=== PATIENT | male | born 1980 | race Caucasian/White ===

== ENCOUNTER 2020-05-19 08:29 | Outpatient (REF) | payer BC, SELFPAY ==
[2020-05-19 10:19] LABS: Hematocrit 46.1 % (42-52); Mean Corpuscular HGB Conc 32.5 g/dl (31.0-36.0); Mean Corpuscular Hemoglobin 30.4 pg (27.0-33.0); Mean Corpuscular Volume 93.5 fL (80-98); Mean Platelet Volume 10.4 fL (9.4-12.4); Platelet Count 316 X10*3/uL (160-400); Red Blood Count 4.93 X10*6/uL (4.60-5.80); Red Cell Distribution Width 11.9 % (11.0-16.0); White Blood Count 6.8 X10*3/uL (4.8-10.8)
[2020-05-19 11:08] LABS: Alanine Aminotransferase 37 U/L (0-40); Albumin Level 4.5 g/dL (3.5-5.0); Alkaline Phosphatase 89 U/L (39-117); Anion Gap 11 (12-20); Aspartate Amino Transferase 24 U/L (5-37); Bilirubin Direct 0.2 mg/dL (0.0-0.5); Bilirubin Total 0.5 mg/dL (0.0-1.0); Blood Urea Nitrogen 12 mg/dL (9-16); Calcium 9.4 mg/dL (8.4-10.2); Carbon Dioxide 30 mmol/L (22-29); Chloride 108 mmol/L (96-108); Cholesterol 136 mg/dL; Estimated Glomerular Filt Rate > 60; Glucose Random 87 mg/dL (60-115); HDL Cholesterol 38 mg/dL; LDL Cholesterol Calculated 82 mg/dl; Potassium 4.3 mmol/L (3.3-5.1); Sodium 145 mmol/L (135-145); Total Protein 7.2 g/dL (6.5-8.0); Triglycerides 81 mg/dL
[2020-05-19 11:31] LABS: Thyroid Stimulating Hormone 0.94 uIU/mL (0.32-4.0)
[2020-05-23 11:32] LABS: Vitamin D 25-OH, D2 <4 ng/mL; Vitamin D 25-OH, D3 8 ng/mL; Vitamin D 25-OH, Total 8 ng/mL (30-100)
== END 2020-05-19 08:30 | disposition home or self-care (01) ==
LOC: HO.10HDL 08:29
PROVIDERS: Visit Provider Internal Medicine
DX: E78.00 Pure hypercholesterolemia, unspecified (principal); F41.1 Generalized anxiety disorder
CPT/HCPCS: 36415; 80048; 80061; 80076; 82306; 84443; 85027

== ENCOUNTER 2021-07-16 08:58 | Outpatient (REF) | payer BC, SELFPAY ==
--- NOTE | ~2021-07-16 | XR_ITS ---
EXAMINATION: XR CHEST CLINICAL INFORMATION: Pleura dynamic COMPARISON: None TECHNIQUE: Frontal view of the chest was obtained. FINDINGS: No significant abnormality is noted involving the heart, lungs, mediastinum, bony thorax or soft tissues. XR/XR chest 1V IMPRESSION: Unremarkable chest examination.
[2021-07-16 10:03] LABS: Hematocrit 48.6 % (42.0-52.0); Hemoglobin 16.1 g/dl (14.0-18.0); Mean Corpuscular HGB Conc 33.1 g/dl (31.0-36.0); Mean Corpuscular Hemoglobin 30.5 pg (27.0-33.0); Mean Platelet Volume 10.5 fL (9.4-12.4); Platelet Count 281 X10*3/uL (160-400); Red Blood Count 5.28 X10*6/uL (4.60-5.80); Red Cell Distribution Width 11.9 % (11.0-16.0); White Blood Count 5.7 X10*3/uL (4.8-10.8)
[2021-07-16 10:59] LABS: Appearance Urine CLEAR; Color Urine YELLOW; Glucose Urine UA NEG (NEG); Leukocyte Esterase Urine NEG (NEG); Nitrite Urine NEG (NEG); PH 5.5 (5.0-8.0); Specific Gravity - Urine >= 1.030 (1.005-1.025); Urine Blood 1+ (NEG); Urine Ketones NEG (NEG); Urine Protein NEG (NEG-TRACE)
[2021-07-16 11:00] LABS: Alanine Aminotransferase 57 U/L (0-40); Albumin Level 4.6 g/dL (3.5-5.0); Alkaline Phosphatase 77 U/L (39-117); Anion Gap 11 (12-20); Aspartate Amino Transferase 34 U/L (5-37); Bilirubin Direct 0.3 mg/dL (0.0-0.5); Blood Urea Nitrogen 9 mg/dL (9-16); Carbon Dioxide 28 mmol/L (22-29); Chloride 104 mmol/L (96-108); Cholesterol 163 mg/dL; Estimated Glomerular Filt Rate > 60; Glucose Random 86 mg/dL (60-115); HDL Cholesterol 44 mg/dL; LDL Cholesterol Calculated 91 mg/dl; Sodium 139 mmol/L (135-145); Total Protein 7.5 g/dL (6.5-8.0); Triglycerides 144 mg/dL
[2021-07-16 11:23] LABS: Thyroid Stimulating Hormone 2.06 uIU/mL (0.32-4.0)
[2021-07-16 11:48] LABS: Bacteria Urine TRACE /LPF; RBC Urine 0-2 /HPF (0); Squamous Epithelial Cell Urine 1+ /LPF; WBC Urine 0-2 /HPF (0-4)
== END 2021-07-16 08:59 | disposition home or self-care (01) ==
LOC: HO.XRAY 08:58
PROVIDERS: Absent Provider Internal Medicine; PCP Internal Medicine; Visit Provider Nurse Practitioner Acute Care
DX: F41.1 Generalized anxiety disorder (principal); E78.00 Pure hypercholesterolemia, unspecified; R07.81 Pleurodynia
CPT/HCPCS: 36415; 71045; 80048; 80061; 80076; 81001; 81003; 84443; 85027

== ENCOUNTER 2022-10-07 08:01 | Outpatient (AMB) | payer BC, SELFPAY ==
--- NOTE | 2022-10-07 08:02 | A.OFFPC_ITS ---
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 Accompanied by: Self / Same As Patient Allergies No Known Allergies Allergy (Verified 10/07/22 08:14) Medication List - Last Reconciled 10/07/22 by Jose Silvestre MD atorvastatin 40 mg PO DAILY paroxetine HCl 40 mg PO DAILY Tobacco use date assessed: 04/08/22 Dental Screening Dental Screen Date: 10/07/22 Did you have a dental visit in the last 12 months?: Yes Did you have a dental problem in the last 6 months where you did not have access to dental care?: No Was dental information given to patient?: Patient has dentist HPI 6mth f/u HPI Details 42-year-old male presents to the office to discuss his chronic medical conditions. Patient is compliant with medications and reporting no side effects. Able to function and do all activities of daily living. Patient reports he goes to bed at midnight and wakes up at 08:00. Occasionally he feels tired. 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 Very active at work. Able to function and communicate well with his peers. No stress at home either. [facility] Medical History (Updated 10/07/22 @ 08:18 by Jose Silvestre MD) Hypercholesterolemia Surgical History History of placement of ear tubes Family History Father No problems noted. Mother No problems noted. Social History Housing: House Alcohol intake: never Patient Tobacco Use Status: Former Tobacco user Tobacco use type: Cigarette e-Cigarette/Vaping Use: Never Used Second Hand Smoke Exposure: No service: No Current occupational status: employed Current occupational exposures/hazards: No Cognitive needs: No Hearing needs: No Vision needs: Yes Questionnaire PHQ-9 Over the last 2 weeks, how often have you been bothered by any of the following problems? Depression Screening Interpretation: Positive Depression Screening Follow-up: Existing condition and In treatment Source: Developed by Drs. Cachorro Lewis, Shonna Mcnamara, Samuel Chambers and colleagues, with an educational booker from [employer]. Thrive Questionnaire Date Thrive assessed: 04/08/22 ETHAN-7 AMB Questionnaire ETHAN-7 Date ETHAN - 7 assessed: 10/07/22 Feeling nervous, anxious, or on edge: 1 = Several days Not being able to stop or control worryin = Not at all Worrying too much about different things: 1 = Several days Trouble relaxin = Not at all Being so restless that it is hard to sit still: 0 = Not at all Becoming easily annoyed or irritable: 0 = Not at all Feeling afraid as if something awful might happen: 0 = Not at all Total ETHAN-7 score (0-4 normal; 5-9 mild; 10-14 moderate; 15-21 severe): 2 Source: Developed by Drs. Cachorro Lewis, Shonna Mcnamara, Samuel Chambers and colleagues, with an educational booker from [employer]. Physical exam (Primary Care) Vital Signs: Last Vital Signs Pulse 76 10/07/22 08:03 BP 108/82 10/07/22 08:03 Pulse Ox 98 10/07/22 08:03 Oxygen Delivery Method Room Air 10/07/22 08:03 Care Plan Goal for BP management: Blood pressure is in range with no medications. BMI result Body Mass Index 24.8 Tobacco/Smoking Status: Tobacco use Status Tobacco use date assessed 04/08/22 10/07/22 08:06 Patient Tobacco Use Status Former Tobacco user 10/07/22 08:06 Tobacco use type Cigarette 10/07/22 08:06 e-Cigarette/Vaping Use Never Used 10/07/22 08:06 Depression Screening Interpretation: Positive Depression Screening Follow-up: Existing condition and In treatment Thrive Assessment: Date of Thrive Assessment Date Thrive assessed 04/08/22 10/07/22 08:06 Const General: cooperative, healthy appearing and comfortable HENMT Head: Yes normal to inspection and Yes atraumatic Eyes General: appearance normal, both eyes and all related structures Neck Neck: Yes normal visual inspection and Yes full ROM Chest Chest palpation & inspection: normal inspection of the chest Resp Effort & Inspection: normal respiratory effort Auscultation: clear to auscultation bilaterally Cardio Jugular venous distension: no JVD Palpation: normal PMI Rate: regular rate Heart sounds: S1 normal heart sound present and S2 normal heart sound present GI Palpation (GI): Soft to palpation and No hepatosplenomegaly present Extrem General: Yes normal to inspection and Yes full ROM Assessment and Plan Assessment & Plan (1) Major depression, recurrent, chronic: Code(s): F33.9 - Major depressive disorder, recurrent, unspecified Plan: Continue current medications. Patient does not require any therapy. (2) Hypercholesterolemia: Code(s): E78.00 - Pure hypercholesterolemia, unspecified Plan: Blood work has been ordered. Will call with results. Coding Level of Care Code Est Pt Level 4 (36447) Diagnoses Major depression, recurrent, chronic F33.9 Hypercholesterolemia E78.00
[2022-10-07 08:03] VITALS: BP 108/82; PULSE 76; O2SAT 98; BMI 24.8
== END 2022-10-07 08:14 | disposition home or self-care (01) ==
PROVIDERS: PCP Internal Medicine; Visit Provider Internal Medicine
DX: F33.9 Major depressive disorder, recurrent, unspecified (principal); E78.00 Pure hypercholesterolemia, unspecified
CPT/HCPCS: 99214

== ENCOUNTER 2022-10-07 08:27 | Outpatient (REF) | payer BC, SELFPAY ==
[2022-10-07 10:55] LABS: Hematocrit 49.7 % (42.0-52.0); Hemoglobin 16.6 g/dl (14.0-18.0); Mean Corpuscular HGB Conc 33.4 g/dl (31.0-36.0); Mean Corpuscular Hemoglobin 30.2 pg (27.0-33.0); Mean Corpuscular Volume 90.4 fL (80.0-98.0); Mean Platelet Volume 10.3 fL (9.4-12.4); Platelet Count 314 X10*3/uL (160-400); Red Cell Distribution Width 11.7 % (11.0-16.0); White Blood Count 5.5 X10*3/uL (4.8-10.8)
[2022-10-07 11:17] LABS: Alanine Aminotransferase 57 U/L (0-40); Albumin Level 4.8 g/dL (3.5-5.0); Alkaline Phosphatase 75 U/L (39-117); Anion Gap 15 (12-20); Aspartate Amino Transferase 31 U/L (5-37); Bilirubin Direct 0.4 mg/dL (0.0-0.5); Bilirubin Total 1.3 mg/dL (0.0-1.0); Blood Urea Nitrogen 11 mg/dL (9-16); Calcium 10.2 mg/dL (8.4-10.2); Carbon Dioxide 24 mmol/L (22-29); Chloride 106 mmol/L (96-108); Cholesterol 138 mg/dL; Estimated Glomerular Filt Rate > 60; Glucose Random 87 mg/dL (60-115); HDL Cholesterol 43 mg/dL; LDL Cholesterol Calculated 83 mg/dl; Potassium 4.3 mmol/L (3.3-5.1); Sodium 141 mmol/L (135-145); Triglycerides 62 mg/dL
[2022-10-07 11:33] LABS: Thyroid Stimulating Hormone 1.45 uIU/mL (0.32-4.0)
== END 2022-10-07 08:28 | disposition home or self-care (01) ==
LOC: HO.10HDL 08:27
PROVIDERS: Visit Provider Internal Medicine
DX: E78.00 Pure hypercholesterolemia, unspecified (principal); F33.9 Major depressive disorder, recurrent, unspecified
CPT/HCPCS: 36415; 80048; 80061; 80076; 84443; 85027

== ENCOUNTER 2023-04-14 07:54 | Outpatient (AMB) | payer BC, SELFPAY ==
[2023-04-14 07:58] VITALS: BP 132/80; PULSE 78; O2SAT 98; BMI 26.5
--- NOTE | 2023-04-14 07:58 | MHC.PC.OV ---
Vital Signs 04/14/23 07:58 Height 5 ft 11 in Weight 190 lb BMI 26.5 BP 132/80 Blood Pressure Location Lt brachial Position Sitting Pulse 78 Pulse Source Pulse Oximeter Pulse Oximetry (%) 98 Oxygen Delivery Method Room Air Intake Visit Reasons: 6M follow up Allergies No Known Allergies Allergy (Verified 04/14/23 07:59) Medication List - Last Reconciled 04/17/23 by Jose Silvestre MD atorvastatin 40 mg PO DAILY paroxetine HCl 40 mg PO DAILY Tobacco use date assessed: 04/14/23 Dental Screening Dental Screen Date: 04/14/23 Did you have a dental visit in the last 12 months?: Yes Did you have a dental problem in the last 6 months where you did not have access to dental care?: No Was dental information given to patient?: Patient has dentist HPI 6M follow up HPI Details 42-year-old male presents to the office to discuss his chronic medical conditions. Patient is compliant with medications and reporting no side effects. Able to function and do all activities of daily living. Continues to work at [employer]. Depression symptoms are under control. Sleeping well at night. Appetite is normal. Able to interact appropriately with family members and friends. [facility] Medical History (Updated 04/17/23 @ 17:41 by Jose Silvestre MD) Major depression, recurrent, chronic Hypercholesterolemia Surgical History History of placement of ear tubes Family History Father No problems noted. Mother No problems noted. Social History Housing: House Alcohol intake: never Patient Tobacco Use Status: Former Tobacco user Tobacco use type: Cigarette e-Cigarette/Vaping Use: Never Used Second Hand Smoke Exposure: No service: No Current occupational status: employed Current occupational exposures/hazards: No Cognitive needs: No Hearing needs: No Vision needs: Yes Questionnaire PHQ-9 Over the last 2 weeks, how often have you been bothered by any of the following problems? 1. Little interest or pleasure in doing things: nearly every day 2. Feeling down, depressed, or hopeless: nearly every day 3. Trouble falling or staying asleep, or sleeping too much: not at all 4. Feeling tired or having little energy: nearly every day 5. Poor appetite or overeating: not at all 6. Feeling bad about yourself - or that you are a failure or have let yourself or your family down: not at all 7. Trouble concentrating on things, such as reading the newspaper or watching television: not at all 8. Moving or speaking so slowly that other people could have noticed. Or the opposite - being so fidgety or restless that you have been moving around a lot more than usual: not at all 9. Thoughts that you would be better off or of hurting yourself in some way: not at all Total score: 9 Depression Screening Interpretation: Positive Depression Screening Follow-up: Existing condition and In treatment Depression Screening Done: Yes Source: Developed by Drs. Cachorro Lewis, Shonna Mcnamara, Samuel Chambers and colleagues, with an educational booker from [employer]. Thrive Questionnaire Date Thrive assessed: 04/14/23 I am a: Patient What is your living situation today?: I have a steady place to live Within the past 12 months, did the food you bought not last and you didn't have the money to get more?: Never true Within the past 12 months, did you worry whether your food would run out before you got money to buy more?: Never true Do you have trouble paying for medicines?: No Do you have trouble getting transportation to medical appointments?: No Do you have trouble paying your heating and electricity bill?: No Do you have trouble taking care of your child, family member or friend?: No Do you have trouble with day-to-day activities such as bathing, preparing meals, shopping, managing finances, etc.?: No Are you currently unemployed and looking for a job?: No Are you interested in more education?: No Currently or been in a relationship where the following occur: no concerns reported THRIVE Score: 0 AUDIT C Alcohol Use Questionnaire (AUDIT-C) 1. How often do you have a drink containing alcohol?: Never Total Score: 0 ETHAN-7 AMB Questionnaire ETHAN-7 Date ETHAN - 7 assessed: 04/14/23 Feeling nervous, anxious, or on edge: 0 = Not at all Not being able to stop or control worryin = Not at all Worrying too much about different things: 0 = Not at all Trouble relaxin = Not at all Being so restless that it is hard to sit still: 0 = Not at all Becoming easily annoyed or irritable: 0 = Not at all Feeling afraid as if something awful might happen: 0 = Not at all Total ETHAN-7 score (0-4 normal; 5-9 mild; 10-14 moderate; 15-21 severe): 0 Source: Developed by Drs. Cachorro Lewis, Shonna Mcnamara, Samuel Chambers and colleagues, with an educational booker from [employer]. Physical exam (Primary Care) Vital Signs: Last Vital Signs Pulse 78 04/14/23 07:58 BP 132/80 04/14/23 07:58 Pulse Ox 98 04/14/23 07:58 Oxygen Delivery Method Room Air 04/14/23 07:58 Care Plan Goal for BP management: Blood pressure is stable. BMI result Body Mass Index 26.5 Tobacco/Smoking Status: Tobacco use Status Tobacco use date assessed 04/14/23 04/14/23 08:04 Patient Tobacco Use Status Former Tobacco user 04/14/23 08:04 Tobacco use type Cigarette 04/14/23 08:04 e-Cigarette/Vaping Use Never Used 04/14/23 08:04 PHQ-9: PHQ-9 Score PHQ-9: Total score 9 04/14/23 08:04 Depression Screening Interpretation: Positive Depression Screening Follow-up: Existing condition and In treatment Thrive Assessment: Date of Thrive Assessment Date Thrive assessed 04/14/23 04/14/23 08:04 Currently or been in a relationship where the following occur: no concerns reported Const General: cooperative and healthy appearing Nutritional Appearance: well nourished Orientation/consciousness: patient oriented x3 Limitations: no limitations HENMT Head: Yes normal to inspection Eyes General: appearance normal, both eyes and all related structures Neck Neck: Yes normal visual inspection Chest Chest palpation & inspection: normal palpation of entire chest wall Resp Effort & Inspection: normal respiratory effort Neuro General: patient oriented x3 Assessment and Plan Assessment & Plan (1) Major depression, recurrent, chronic: Code(s): F33.9 - Major depressive disorder, recurrent, unspecified Plan: Continue SSRI at the same dosage. (2) Hypercholesterolemia: Code(s): E78.00 - Pure hypercholesterolemia, unspecified Plan: Blood work ordered. Will call with the results. Orders: Orders Basic Metabolic Panel 04/14/23 E78.00 - Pure hypercholesterolemia, unspecified, F33.9 - Major depressive disorder, recurrent, unspecified Complete Blood Count no Diff 04/14/23 E78. - Pure hypercholesterolemia, unspecified, F33.9 - Major depressive disorder, recurrent, unspecified Liver Panel 04/14/23 E78.00 - Pure hypercholesterolemia, unspecified, F33.9 - Major depressive disorder, recurrent, unspecified Thyroid Stimulating Hormone 04/14/23 E78.00 - Pure hypercholesterolemia, unspecified, F33.9 - Major depressive disorder, recurrent, unspecified UA and rflx microscopic 04/14/23 E78.00 - Pure hypercholesterolemia, unspecified, F33.9 - Major depressive disorder, recurrent, unspecified Lipid Panel 04/14/23 E78.00 - Pure hypercholesterolemia, unspecified, F33.9 - Major depressive disorder, recurrent, unspecified Coding Level of Care Code Est Pt Level 4 (11822) Diagnoses Major depression, recurrent, chronic F33.9 Hypercholesterolemia E78.00
== END 2023-04-14 08:29 | disposition home or self-care (01) ==
PROVIDERS: PCP Internal Medicine; Visit Provider Internal Medicine
DX: F33.9 Major depressive disorder, recurrent, unspecified (principal); E78.00 Pure hypercholesterolemia, unspecified
CPT/HCPCS: 99214

== ENCOUNTER 2023-10-13 07:54 | Outpatient (AMB) | payer BC, SELFPAY ==
[2023-10-13 07:56] VITALS: BP 112/76; PULSE 79; O2SAT 99; BMI 25.0
--- NOTE | 2023-10-13 07:56 | MHC.PC.OV ---
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 Patient is compliant with medication and is at baseline state of health. He works for [employer]. Lives with his girlfriend and dog. Able to function and do all activities of daily living. Able to maintain good interpersonal relationships. Sleeping well at night. Appetite is normal. [facility] Medical History (Updated 10/13/23 @ 08:00 by Jose Silvestre MD) Major depression, recurrent, chronic Hypercholesterolemia Surgical History History of placement of ear tubes Family History Father No problems noted. Mother No problems noted. Social History Housing: House Alcohol intake: never Patient Tobacco Use Status: Former Tobacco user Tobacco use type: Cigarette e-Cigarette/Vaping Use: Never Used Second Hand Smoke Exposure: No service: No Current occupational status: employed Current occupational exposures/hazards: No Cognitive needs: No Hearing needs: No Vision needs: Yes Questionnaire Thrive Questionnaire Date Thrive assessed: 04/14/23 ETHAN-7 AMB Questionnaire ETHAN-7 Date ETHAN - 7 assessed: 04/14/23 Source: Developed by Drs. Cachorro Lweis, Shonna Mcnamara, Samuel Chambers and colleagues, with an educational booker from [employer]. Physical exam (Primary Care) Vital Signs: Last Vital Signs Pulse 79 10/13/23 07:56 BP 112/76 10/13/23 07:56 Pulse Ox 99 10/13/23 07:56 Oxygen Delivery Method Room Air 10/13/23 07:56 BMI result Body Mass Index 25.0 Tobacco/Smoking Status: Tobacco use Status Tobacco use date assessed 04/14/23 10/13/23 08:01 Patient Tobacco Use Status Former Tobacco user 10/13/23 08:01 Tobacco use type Cigarette 10/13/23 08:01 e-Cigarette/Vaping Use Never Used 10/13/23 08:01 Thrive Assessment: Date of Thrive Assessment Date Thrive assessed 04/14/23 10/13/23 08:01 Const General: cooperative and healthy appearing Nutritional Appearance: well nourished Orientation/consciousness: patient oriented x3 Limitations: no limitations HENMT Head: Yes normal to inspection Eyes General: appearance normal, both eyes and all related structures Neck Neck: Yes normal visual inspection Chest Chest palpation & inspection: normal palpation of entire chest wall Resp Effort & Inspection: normal respiratory effort Neuro General: patient oriented x3 Assessment and Plan Assessment & Plan (1) Hypercholesterolemia: Code(s): E78.00 - Pure hypercholesterolemia, unspecified Plan: Patient has not had blood work done in a year. Fasting blood work has been ordered. Will adjust the dosage of the statins based on the results of the blood work. (2) Major depression, recurrent, chronic: Code(s): F33.9 - Major depressive disorder, recurrent, unspecified Plan: Patient reports that his condition is stable. Prefers to be on the medication at the same dosage. Orders: Orders Complete Blood Count no Diff Today E78.00 - Pure hypercholesterolemia, unspecified, F33.9 - Major depressive disorder, recurrent, unspecified Liver Panel Today E78.00 - Pure hypercholesterolemia, unspecified, F33.9 - Major depressive disorder, recurrent, unspecified Thyroid Stimulating Hormone Today E78.00 - Pure hypercholesterolemia, unspecified, F33.9 - Major depressive disorder, recurrent, unspecified Basic Metabolic Panel Today E78.00 - Pure hypercholesterolemia, unspecified, F33.9 - Major depressive disorder, recurrent, unspecified Lipid Panel Today E78.00 - Pure hypercholesterolemia, unspecified, F33.9 - Major depressive disorder, recurrent, unspecified UA and rflx microscopic Today E78.00 - Pure hypercholesterolemia, unspecified, F33.9 - Major depressive disorder, recurrent, unspecified Coding Level of Care Code Est Pt Level 4 (63361) Complex EM visit Add On G2211 Diagnoses Hypercholesterolemia E78.00 Major depression, recurrent, chronic F33.9
== END 2023-10-13 08:15 | disposition home or self-care (01) ==
PROVIDERS: PCP Internal Medicine; Visit Provider Internal Medicine
DX: E78.00 Pure hypercholesterolemia, unspecified (principal); F33.9 Major depressive disorder, recurrent, unspecified
CPT/HCPCS: 99214

== ENCOUNTER 2023-10-13 08:22 | Outpatient (REF) | payer BC, SELFPAY ==
[2023-10-13 08:55] LABS: Hematocrit 47.4 % (42.0-52.0); Hemoglobin 15.8 g/dl (14.0-18.0); Mean Corpuscular HGB Conc 33.3 g/dl (31.0-36.0); Mean Corpuscular Hemoglobin 30.7 pg (27.0-33.0); Mean Platelet Volume 9.7 fL (9.4-12.4); Platelet Count 305 X10*3/uL (160-400); Red Blood Count 5.15 X10*6/uL (4.60-5.80); Red Cell Distribution Width 11.9 % (11.0-16.0); White Blood Count 5.1 X10*3/uL (4.8-10.8)
[2023-10-13 09:34] LABS: Alanine Aminotransferase 47 U/L (0-40); Albumin Level 4.6 g/dL (3.5-5.0); Alkaline Phosphatase 69 U/L (39-117); Anion Gap 9 (12-20); Aspartate Amino Transferase 31 U/L (5-37); Bilirubin Direct 0.2 mg/dL (0.0-0.5); Bilirubin Total 0.7 mg/dL (0.0-1.0); Blood Urea Nitrogen 10 mg/dL (9-16); Calcium 9.8 mg/dL (8.4-10.2); Carbon Dioxide 30 mmol/L (22-29); Chloride 106 mmol/L (96-108); Cholesterol 143 mg/dL (<200); Estimated Glomerular Filt Rate > 60; Glucose Random 102 mg/dL (60-115); HDL Cholesterol 44 mg/dL (>40); LDL Cholesterol Calculated 88 mg/dL (<100); Potassium 4.2 mmol/L (3.3-5.1); Sodium 141 mmol/L (135-145); Total Protein 7.4 g/dL (6.5-8.0); Triglycerides 56 mg/dL (<150)
[2023-10-13 09:50] LABS: Thyroid Stimulating Hormone 1.29 uIU/mL (0.32-4.0)
== END 2023-10-13 08:23 | disposition home or self-care (01) ==
LOC: HO.LAB 08:22
PROVIDERS: PCP Internal Medicine; Visit Provider Internal Medicine
DX: E78.00 Pure hypercholesterolemia, unspecified (principal); F33.9 Major depressive disorder, recurrent, unspecified
CPT/HCPCS: 36415; 80048; 80061; 80076; 84443; 85027

== ENCOUNTER 2024-05-10 07:52 | Outpatient (AMB) | payer BC, SELFPAY ==
--- OUTSIDE RECORDS SUMMARY | 2024-05-10 07:56 | XMS_ITS | Data Portability ---
Author Organization [facility], Main Office Address [address] [facility] [address] [place] [id number] Care Team Providers Care Scaler Name Role Phone JAN BROWNE Primary Care Provider Assessment No assessment recorded. Plan of Treatment Reminders Order Date Submit Date Provider Last Modified By Organization Details Last Modified Time Details Appointments None recorde d. Lab tissue transgl utamina se igg Ab, serum 2016 017 IV[facility], [address], [address], [place], [address], 7 09:51:02 tissue transgl utamina se iga Ab, serum 2016 017 [facility], [address], [address], [place], [address], 7 17:10:43 lipid panel, serum 2016 017 [facility], [address], [address], [place], [address], 7 15:17:26 CMP, serum or plasma 2016 017 [facility], [address], [address], [place], [address], 7 15:17:25 CBC w/ auto diff 2016 017 [facility], [address], [address], [place], [address], 7 13:58:42 Referral None recorde d. Procedures None recorde d. Surgeries None recorde d. Imaging XR, calcane us 2016 017 marcelle [facility], [address] [place], [address], 7 08:24:07 XR, ankle, 3 or more view 2016 017 IAVN [facility], [address] [place], [address], 7 13:13:31 Medication Orders clonaze mitch 0.5 mg tablet 2016 017 [email or web address] Not available 09:35:12 Patient TargetsNo targets recorded. Patient Instructions Encounter Date Encounter Id Patient Instructions Last Modified By Organization Details Last Modified Time 04/07/2016 [id number] Quitting Tobacco : Care Instructions Not available 04/07/2016 14:11:26 Learning About Benefits of Quitting Smoking Not available 04/07/2016 14:11:26 diarrhea: care instructions Not available 04/07/2016 14:11:26 insomnia: care instructions Not available 04/07/2016 14:11:27 substance use disorder: care instructions Not available 04/07/2016 14:11:26 alcohol detoxification and withdrawal: care instructions Not available 04/07/2016 14:11:26 alcohol counseling* marcelle Not available 04/16/2016 09:37:47 alcoholism education [email or web address] Not available 04/08/2016 14:20:59 rec. get debrox kit - apply 5 drops in affected ear before bedtime, then place cotton ball - do so nightly x 1-3 nights, then use bulb syringe with warm water in the shower on the 4th day to irrigate the blockage out [email or web address] Not available 04/07/2016 14:01:51 I have reviewed the note and agree with the assessment and plan of care. driss Not available 04/08/2016 16:41:23 09/23/2016 [id number] plantar fasciiti s: care instructions [email or web address] Not available 09/23/2016 09:35:12 heel pain: care instructions [email or web address] Not available 09/23/2016 09:35:12 ankle sprain: ca re instructions ckrym Not available 09/23/2016 09:35:12 I have reviewed the note and agree with the assessment and plan of care. [email or web address] Not available 09/23/2016 12:43:56 Reason for Referral None Reported. Results Created Date Observation Date Name Description Value Unit Range Abnormal Flag Note LastModifiedBy Organization Detail LastModifiedTime 04/09/1904/09/2016 CBC w/ auto diff WBC 5.6 K/mm3 (4.0-1 1.0) Not Available [facility] (Centralized Electronic Ordering - All Locations) Patient Can Go To The Location Of Their Choice, 04/09/2016 13:58:42 04/09/1904/09/2016 CBC w/ auto diff RBC 5.38 M/mm3 (4.70- 6.10) Not Available [facility] (Centralized Electronic Ordering - All Locations) Patient Can Go To The Location Of Their Choice, 04/09/2016 13:58:42 04/09/1904/09/2016 CBC w/ auto diff HGB 16.9 gm/dL (14.0- 18.0) Not Available [facility] (Centralized Electronic Ordering - All Locations) Patient Can Go To The Location Of Their Choice, 04/09/2016 13:58:42 04/09/1904/09/2016 CBC w/ auto diff HCT 50.8 % (42.0- 52.0) Not Available [facility] (Centralized Electronic Ordering - All Locations) Patient Can Go To The Location Of Their Choice, 04/09/2016 13:58:42 04/09/1904/09/2016 CBC w/ auto diff MCV 94.4 fL (80.0- 94.0) high Not Available [facility] (Centralized Electronic Ordering - All Locations) Patient Can Go To The Location Of Their Choice, 04/09/2016 13:58:42 04/09/1904/09/2016 CBC w/ auto diff MCH 31.4 pg (27.0- 34.0) Not Available [facility] (Centralized Electronic Ordering - All Locations) Patient Can Go To The Location Of Their Choice, 04/09/2016 13:58:42 04/09/1904/09/2016 CBC w/ auto diff MCHC 33.3 g/dL (33.0- 37.0) Not Available [facility] (Centralized Electronic Ordering - All Locations) Patient Can Go To The Location Of Their Choice, 04/09/2016 13:58:42 04/09/1904/09/2016 CBC w/ auto diff plt 270 K/mm3 (150-4 60) Not Available [facility] (Centralized Electronic Ordering - All Locations) Patient Can Go To The Location Of Their Choice, 04/09/2016 13:58:42 04/09/1904/09/2016 CBC w/ auto diff RDW-SD 42.8 fL (<47.0 ) Not Available [facility] (Centralized Electronic Ordering - All Locations) Patient Can Go To The Location Of Their Choice, 04/09/2016 13:58:42 04/09/1904/09/2016 CBC w/ auto diff MPV 10.3 fL (9.4-1 2.4) Not Available [facility] (Centralized Electronic Ordering - All Locations) Patient Can Go To The Location Of Their Choice, 04/09/2016 13:58:42 04/09/1904/09/2016 CBC w/ auto diff automated NRBC 0.0 #/100 _WBC' s Not Available [facility] (Centralized Electronic Ordering - All Locations) Patient Can Go To The Location Of Their Choice, 04/09/2016 13:58:42 04/09/1904/09/2016 CBC w/ auto diff abs. NRBC 0.0 K/mm3 Not Available [facility] (Centralized Electronic Ordering - All Locations) Patient Can Go To The Location Of Their Choice, 04/09/2016 13:58:42 04/09/1904/09/2016 CMP, serum or plasm a glucose 94 mg/dL (70-99 ) Not Available [facility] (Centralized Electronic Ordering - All Locations) Patient Can Go To The Location Of Their Choice, 04/09/2016 15:17:25 04/09/1904/09/2016 CMP, serum or plasm a BUN 16 mg/dL (6-20) Not Available [facility] (Centralized Electronic Ordering - All Locations) Patient Can Go To The Location Of Their Choice, 04/09/2016 15:17:04/09/1904/09/2016 CMP, serum or plasm a creatinine 1.1 mg/dL (0.7-1 .2) Not Available [facility] (Centralized Electronic Ordering - All Locations) Patient Can Go To The Location Of Their Choice, 04/09/2016 15:17:04/09/1904/09/2016 CMP, serum or plasm a sodium 141 mmol/ L (133-1 45) Not Available [facility] (Centralized Electronic Ordering - All Locations) Patient Can Go To The Location Of Their Choice, 04/09/2016 15:17:04/09/1904/09/2016 CMP, serum or plasm a potassium 4.7 mmol/ L (3.6-5 .2) Not Available [facility] (Centralized Electronic Ordering - All Locations) Patient Can Go To The Location Of Their Choice, 04/09/2016 15:17:04/09/1904/09/2016 CMP, serum or plasm a chloride 102 mmol/ L (98-10 7) Not Available [facility] (Centralized Electronic Ordering - All Locations) Patient Can Go To The Location Of Their Choice, 04/09/2016 15:17:04/09/1904/09/2016 CMP, serum or plasm a bicarbonate 27 mmol/ L (22-29 ) Not Available [facility] (Centralized Electronic Ordering - All Locations) Patient Can Go To The Location Of Their Choice, 04/09/2016 15:17:04/09/1904/09/2016 CMP, serum or plasm a anion gap 12 (4-17) Not Available [facility] (Centralized Electronic Ordering - All Locations) Patient Can Go To The Location Of Their Choice, 04/09/2016 15:17:04/09/1904/09/2016 CMP, serum or plasm a albumin 4.8 gm/dL (3.4-4 .8) Not Available [facility] (Centralized Electronic Ordering - All Locations) Patient Can Go To The Location Of Their Choice, 04/09/2016 15:17:04/09/1904/09/2016 CMP, serum or plasm a calcium 9.7 mg/dL (8.6-1 0.5) Not Available [facility] (Centralized Electronic Ordering - All Locations) Patient Can Go To The Location Of Their Choice, 04/09/2016 15:17:04/09/1904/09/2016 CMP, serum or plasm a bilirubin,to bishop 0.6 mg/dL (0-1.2 ) Not Available [facility] (Centralized Electronic Ordering - All Locations) Patient Can Go To The Location Of Their Choice, 04/09/2016 15:17:04/09/1904/09/2016 CMP, serum or plasm a total protein 7.2 gm/dL (6.2-8 .2) Not Available [facility] (Centralized Electronic Ordering - All Locations) Patient Can Go To The Location Of Their Choice, 04/09/2016 15:17:04/09/1904/09/2016 CMP, serum or plasm a Ag ratio 2.0 Not Available [facility] (Centralized Electronic Ordering - All Locations) Patient Can Go To The Location Of Their Choice, 04/09/2016 15:17:04/09/1904/09/2016 CMP, serum or plasm a AST 27 U/L (0-38) Not Available [facility] (Centralized Electronic Ordering - All Locations) Patient Can Go To The Location Of Their Choice, 04/09/2016 15:17:04/09/1904/09/2016 CMP, serum or plasm a alk phos 61 U/L (40-12 9) Not Available [facility] (Centralized Electronic Ordering - All Locations) Patient Can Go To The Location Of Their Choice, 04/09/2016 15:17:04/09/1904/09/2016 CMP, serum or plasm a ALT 41 U/L (0-41) Not Available [facility] (Centralized Electronic Ordering - All Locations) Patient Can Go To The Location Of Their Choice, 04/09/2016 15:17:04/09/1904/09/2016 CMP, serum or plasm a est GFR non 86 mL/mi n/1.7 3_M2 The CKD-E PI creat inine equat ion has not been valid ated in child annika (<18 years ), pregn ant women , in some racia l or ethni c subgr oups other than Cauca sians and Afric an Ameri cans. Not Available [facility] (Centralized Electronic Ordering - All Locations) Patient Can Go To The Location Of Their Choice, 04/09/2016 15:17:25 04/09/19 17 04/09/2016 CMP, serum or plasm a est GFR 100 mL/mi n/1.7 3_M2 The CKD-E PI creat inine equat ion has not been valid ated in child annika (<18 years ), pregn ant women , in some racia l or ethni c subgr oups other than Cauca sians and Afric an Ameri cans. Not Available [facility] (Centralized Electronic Ordering - All Locations) Patient Can Go To The Location Of Their Choice, 04/09/2016 15:17:25 04/09/1904/09/2016 lipid panel , serum cholesterol, total 238 mg/dL (<200) high Not Available [facility] (Centralized Electronic Ordering - All Locations) Patient Can Go To The Location Of Their Choice, 04/09/2016 15:17:26 04/09/1904/09/2016 lipid panel , serum triglyceride 169 mg/dL (<150) high Not Available [facility] (Central[facility] Ordering - All Locations) Patient Can Go To The Location Of Their Choice, 04/09/2016 15:17:04/09/1904/09/2016 lipid panel , serum HDL chol 58 mg/dL (>39) Not Available [facility] (Centralized Electronic Ordering - All Locations) Patient Can Go To The Location Of Their Choice, 04/09/2016 15:17:26 04/09/1904/09/2016 lipid panel , serum LDL cholesterol, calculated 146 mg/dL (0-130 ) high Not Available [facility] (Centralized Electronic Ordering - All Locations) Patient Can Go To The Location Of Their Choice, 04/09/2016 15:17:26 04/09/1904/09/2016 lipid panel , serum non HDL cholesterol (calc) 180 mg/dL (<160) high Not Available [facility] (Centralized Electronic Ordering - All Locations) Patient Can Go To The Location Of Their Choice, [id number] 04/09/2016 15:17:26 04/09/19 17 04/12/2016 tissu e trans gluta shreya e iga Ab, serum ttg result 0.55 U/mL Refer ence Range : less than or equal to 15 U/mL (nega tive) Effec tiamarilys Canela 2016 the refer ence range for this assay has la ed from less than 4 U/mL to less than or equal to 15 U/mL. Not Available [facility] (Centralized Electronic Ordering - All Locations) Patient Can Go To The Location Of Their Choice, [id number] 04/12/2016 17:10:43 04/09/19 17 04/13/2016 tissu e trans gluta shreya e igg Ab, serum tissue tranglutamin ase IgG <1.2 Refer ence range : <6.0 (Nega tive) Unit: U/mL Test Perfo rmed by: [facility], [address] , [place] [address] Labor atory Direc tor: Evert astudillo III, M.D. Not Available [facility] (Centralized Electronic Ordering - All Locations) Patient Can Go To The Location Of Their Choice, [id number] 04/13/2016 09:51:02 09/28/19 17 09/27/2016 XR, calca neus Right calcan eus, latera l and tangen tial. Histor y: Pain. These images were previo usly interp reted togeth er with a right ankle study. See separa te report . WSN: [id number] Dictat ed By: John Kaye MD Dictat ed Date/T pia: 12:40 p Review ed By: John Kaye MD Signed By: John Kaye MD Signed Date/T pia: 12:40 pm Transc ribed By: CARLOS Transc ribed Date/T pia: 12:40 pm Patien t Class[facility] [address] , [place], [address], 10/07/2016 08:24:07 09/28/19 17 09/27/2016 XR, ankle , 3 or more view Right ankle, AP, obliqu e and latera l and Separa te study of the right heel, latera l and tangen tial. Histor y: Ankle pain and hindfo ot joint pain. There is no bone injury . No arthri tic diseas e with joint surfac es smooth and joint spaces preser ermias. No focal soft tissue abnorm ality. Impres joey: Normal studie s. WSN: [id number] Dictat ed By: John Kaye MD Dictat ed Date/T pia: 1:10 pm Review ed By: John Kaye MD Signed By: John Kaye MD Signed Date/T pia: 1:10 pm Transc ribed By: CARLOS Transc ribed Date/T pia: 1:10 pm Patien t Class: Outpat ient [facility] (Outpt Imaging) [address] [place] [address], [address], 09/27/2016 20:14:55 Result Notes None recorded. Problems Name Problem SNOMED Code Status Onset Date Resolution Date Notes Provider Name and Address Organization Details Recorded Time Depressive disorder 51020688 Active 017 DOUGLAS Tadeo, [facility] 7 13:06:54 Anxiety 72667388 Active 017 DOUGLAS Tadeo, [facility] 7 13:07:01 Problem Notes None recorded. Procedures Surgical History None recorded. Imaging Results Imaging Date Name Status LastModified by Organiz ation Details LastModified Time 09/27/2016 XR, calcaneus [facility] [address] [place], [address], 10/07/2016 08:24:07 09/27/2016 XR, ankle, 3 or more view completed [facility] (Outpt Imaging) [address] [place], [address], 09/27/2016 20:14:55 Procedure Notes None recorded. Medical Equipment None Reported. Allergies No known drug allergies Medications Name Sig Start Date Stop Date Status Note LastModified by Organization Details LastModified Time clonazepam 0.5 mg tablet Take 1 tablet every day by oral route as directed for 30 days. 017 active Not Available Not Available Not Avai lable paroxetine 40 mg tablet TAKE 1 TABLET(S) EVERY DAY BY ORAL ROUTE DIRECTED FOR 30 DAYS. active Not Available Not Available No t Available Vitals Date Recorded Oxygen saturation Oxygen saturation in Arterial blood by Pulse oximetry Heart rate Body height Body weight Body mass index (BMI) Body temperature Systolic blood pressure Diastolic blood pressure Provider Name and Address Organization Details Last Updated DateTime 7 100 % 100 % 81 /min 180.34 cm 98514.1 4 g 26.6 kg/m2 97.8 [degF] 123 mm[Hg] 80 mm[Hg] Jocelyn Bolden MA [facility] 7 13:12:45 Date Recorded Body height Body mass index (BMI) Body weight Body temperature Oxygen saturation Oxygen saturation in Arterial blood by Pulse oximetry Heart rate Systolic blood pressure Diastolic blood pressure Provider Name and Address Organization Details Last Updated DateTime 7 180.34 cm 25.2 kg/m2 29107.7 8 g 97.8 [degF] 97 % 97 % 81 /min 111 mm[Hg] 76 mm[Hg] Irma Medina [facility] 7 08:47:04 Social History Question Answer Notes LastModified by Organizat ion Details LastModified Time Tobacco Smoking Status Current Every Day Smoker Jocelyn Bolden MA [facility], [facility] 04/07/2016 13:09:44 What Is Your Level Of Alcohol Consumption? Heavy [email or web address] Information not available 04/07/2016 Is Blood Transfusion Acceptable In An Emergency? Yes [email or web address] Information not available 04/07/2016 What Is Your Level Of Caffeine Consumption? Moderate [email or web address] Information not available 04/07/2016 Are You Currently Employed? Yes [email or web address] Information not available 04/07/2016 What Type Of Diet Are You Following? REGULAR Information not available 04/07/2016 Live Alone Or With Others? With Others [email or web address] Information not available 04/07/2016 Do You Take Precautions To Prevent Distracted Driving? Yes [email or web address] Information not available 04/07/2016 Have You Served In The ? No [email or web address] Information not available 04/07/2016 How Many Children Do You Have? 0 [email or web address] Information not available 04/07/2016 Seat Belts Used Routinely Yes [email or web address] Information not available 04/07/2016 Are You Sexually Active? Yes [email or web address] Information not available 04/07/2016 Smoke Alarm In Home Yes [email or web address] Information not available 04/07/2016 How Much Tobacco Do You Smoke? 1 PPD [email or web address] Information not available 04/07/2016 Do You Use Sunscreen Routinely? Yes [email or web address] Information not available 04/07/2016 Sex: Unknown Functional Status Question Answer Note LastModified by Organization D etails LastModified Time Are you able to care for yourself? Yes [email or web address] Information n ot available 04/07/2016 What is your exercise level? None [email or web address] Information not available 04/07/2016 Mental Status None recorded. Family History Relationship Description Onset Age of this Age Resolved Age Notes LastModified by Organization Details LastModified Time Paternal Grandmother Heart disease [email or web address] Not available 04/07 13:08:16 Mother Hypertensive disorder [email or web address] Not available 04/07 13:08:32 Father Parkinson's disease [email or web address] Not available 04/07 13:08:43 Notes:no FH of breast or col on cancer Medical History No medical history recorded. Immunizations Vaccine Type Date Status Note Provider Nam e and Address Organization Details Recorded Time Tdap 03/14/2013 completed DOUGLAS Tadeo [facility] 04/07/2016 13:06:39 Past Encounters Encounter ID Performer Location Encounter Start Date Encounter Closed Date Diagnosis/Indication Diagnosis SNOMED-CT Code Diagnosis ICD10 Code Diagnosis Note [id number] Young Reyna MD Main Office [address] [facility] [place] [id number] 04/07/2016 12:39:19 04/07/2016 14:17:59 Adult health examination 186419535 Z00.00 Tobacco de pendence syndrome 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 F17.290 h/o tob x 15 pyh - has tried to quit a few times in past - cold turkey, but only lasts a few weeks Body mass index 25-29 - overweight 703327586 Z68.26 Alcohol abuse 52090830 F 10.10 ave 6-12 beers/nigh t most nights of the week Irritable bowel syndrome with diarrhea 776055050 K58.0 h/o ibs-d since childhood - check ttg to r/o celiac Insomnia 514197306 G47.0 0 Impacted cerumen 2599642 6 H61.21 mild R 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 stable on meds as per former PCP, never seen by therapist - consider if feeling worse d/t dual dx c etoh [id number] Estuardo chan Main Office [address] [facility] [address] [facility] [place] [id number] 09/23/2016 08:24:11 09/23/2016 10:34:36 Anxiety 85726808 F41.9 rare use of clonazepam - not even wkly Depressive disorder 3548 9007 F32.9 doing great on ssri - cont Ankle pain 980517508 M25 .571 rolled ankle yesterday - ice, elevate - hurts worse today (more so heel than ankle but pt concerned about hairline fx) Plantar fasciitis 700002 003 M72.2 25 minute office visit with greater than 50% of the visit face-to-fa ce with the patient and/or family providing counseling and/or coordinati on of care. Heel pain 8964673 M79.67 1 6 months - see above - check xray to see about degree of spur Alcohol abuse 71910861 F 10.10 quit etoh several months ago - feeling better - congratula jelly pt Health Concerns Section Related Observation LastModified by Organization Detai ls LastModified Time None Recorded Concern Status LastModified by Organization Details LastModified Time None Recorded Advance Directives Directive None Recorded Payers Encounter Date Sequence Insurance Name Policy Number Policy Eugene Covered Member ID Eugene Member ID Guarantor Name 04/07/2016 1 [place] [id number] Tom Anderson [id number] Tom Anderson 09/23/2016 1 [place] [id number] Tom Anderson [id number] Tom Anderson Notes Date Note Type Note Provider Name and Address Organization Details Recorded Time 04/07/2016 text/html here for [employer] PE - no records to review. Pt has h/o anx/dep - takes paxil and prn clonazepam from PCP - never seen by therapist, was rx'd by PCP - states has enough pills at this time. He states he left former PCP d/t difficulty getting in to office. Young Reyna MD [address] [address], [place], [address], [facility] 04/08/2016 16:41:33 09/23/2016 text/html pt here for 6 month f/u - quit etoh, feeling a lot better, has lost 11 lbs, less anxiety - rarely uses clonazepam but requests refill, no problems c insomnia, diarrhea better yesterday he rolled his R ankle - a little concerned, but able to walk / go to work ([employer]) what feels worse is his heel pain - but he has had R heel pain int x 6 months - sometimes has to walk on tip toes 1st thing in am Estuardo sequeira [facility] 09/23/2016 12:44:09
[2024-05-10 08:05] VITALS: BP 118/62; PULSE 72; O2SAT 97; BMI 26.1
--- NOTE | 2024-05-10 08:05 | MHC.PC.OV ---
Vital Signs 05/10/24 08:05 Height 5 ft 11 in Weight 187 lb BMI 26.1 BP 118/62 Blood Pressure Location Lt brachial Position Sitting Pulse 72 Pulse Source Pulse Oximeter Pulse Oximetry (%) 97 Oxygen Delivery Method Room Air Intake Visit Reasons: 6 MONTH FOLLOW UP Allergies No Known Allergies Allergy (Verified 05/10/24 08:24) Medication List - Last Reconciled 05/10/24 by Jose Silvestre MD atorvastatin 40 mg PO DAILY paroxetine HCl 40 mg PO DAILY Tobacco use date assessed: 05/10/24 Dental Screening Dental Screen Date: 05/10/24 Did you have a dental visit in the last 12 months?: Yes Did you have a dental problem in the last 6 months where you did not have access to dental care?: No Was dental information given to patient?: Patient has dentist [facility] Medical History Major depression, recurrent, chronic Hypercholesterolemia Surgical History History of placement of ear tubes Family History Father No problems noted. Mother No problems noted. Social History Housing: House Alcohol intake: never Patient Tobacco Use Status: Former Tobacco user Tobacco use type: Cigarette e-Cigarette/Vaping Use: Never Used Second Hand Smoke Exposure: No service: No Current occupational status: employed Current occupational exposures/hazards: No Cognitive needs: No Hearing needs: No Vision needs: Yes Questionnaire PHQ-9 Over the last 2 weeks, how often have you been bothered by any of the following problems? 1. Little interest or pleasure in doing things: not at all 2. Feeling down, depressed, or hopeless: not at all 3. Trouble falling or staying asleep, or sleeping too much: not at all 4. Feeling tired or having little energy: not at all 5. Poor appetite or overeating: not at all 6. Feeling bad about yourself - or that you are a failure or have let yourself or your family down: not at all 7. Trouble concentrating on things, such as reading the newspaper or watching television: not at all 8. Moving or speaking so slowly that other people could have noticed. Or the opposite - being so fidgety or restless that you have been moving around a lot more than usual: not at all 9. Thoughts that you would be better off or of hurting yourself in some way: not at all Total score: 0 Depression Screening Interpretation: Positive Depression Screening Follow-up: Existing condition and In treatment Depression Screening Done: Yes Source: Developed by Drs. Cachorro Lewis, Shonna Mcnamara, Samuel Chambers and colleagues, with an educational booker from [employer]. Thrive Questionnaire Date Thrive assessed: 05/10/24 I am a: Patient What is your living situation today?: I have a steady place to live Within the past 12 months, did the food you bought not last and you didn't have the money to get more?: Never true Within the past 12 months, did you worry whether your food would run out before you got money to buy more?: Never true Do you have trouble paying for medicines?: No Do you have trouble getting transportation to medical appointments?: No Do you have trouble paying your heating and electricity bill?: No Do you have trouble taking care of your child, family member or friend?: No Do you have trouble with day-to-day activities such as bathing, preparing meals, shopping, managing finances, etc.?: No Are you currently unemployed and looking for a job?: No Are you interested in more education?: No Currently or been in a relationship where the following occur: No concerns reported THRIVE Score: 0 AUDIT C Alcohol Use Questionnaire (AUDIT-C) 1. How often do you have a drink containing alcohol?: Never Total Score: 0 ETHAN-7 AMB Questionnaire ETHAN-7 Date ETHAN - 7 assessed: 05/10/24 Feeling nervous, anxious, or on edge: 0 = Not at all Not being able to stop or control worryin = Not at all Worrying too much about different things: 0 = Not at all Trouble relaxin = Not at all Being so restless that it is hard to sit still: 0 = Not at all Becoming easily annoyed or irritable: 0 = Not at all Feeling afraid as if something awful might happen: 0 = Not at all Total ETHAN-7 score (0-4 normal; 5-9 mild; 10-14 moderate; 15-21 severe): 0 Source: Developed by Drs. Cachorro Lewis, Shonna Mcnamara, Samuel Chambers and colleagues, with an educational booker from [employer]. Physical exam (Primary Care) Vital Signs: Last Vital Signs Pulse 72 05/10/24 08:05 BP 118/62 05/10/24 08:05 Pulse Ox 97 05/10/24 08:05 Oxygen Delivery Method Room Air 05/10/24 08:05 BMI result Body Mass Index 26.1 Tobacco/Smoking Status: Tobacco use Status Tobacco use date assessed 05/10/24 05/10/24 08:10 Patient Tobacco Use Status Former Tobacco user 05/10/24 08:10 Tobacco use type Cigarette 05/10/24 08:10 e-Cigarette/Vaping Use Never Used 05/10/24 08:10 PHQ-9: PHQ-9 Score PHQ-9: Total score 0 05/10/24 08:10 Depression Screening Interpretation: Positive Depression Screening Follow-up: Existing condition and In treatment Thrive Assessment: Date of Thrive Assessment Date Thrive assessed 05/10/24 05/10/24 08:10 Currently or been in a relationship where the following occur: No concerns reported Coding Level of Care Code Est Pt Level 4 (08967) Complex EM visit Add On G2211 Diagnoses Major depression, recurrent, chronic F33.9 Hypercholesterolemia E78.00 Knee sprain S83.90XA Assessment & Plan Assessment & Plan (1) Major depression, recurrent, chronic: Code(s): F33.9 - Major depressive disorder, recurrent, unspecified Category: Medical Plan: Condition is stable. Continue medications at same dosage. (2) Hypercholesterolemia: Code(s): E78.00 - Pure hypercholesterolemia, unspecified Category: Medical Plan: LDL in range in Oct 2023. Fastin bw ordered. Continue statins at same dosage. (3) Knee sprain: Code(s): S83.90XA - Sprain of unspecified site of unspecified knee, initial encounter Plan: Work related injury. Pt has an appt pending with orthopedics. Plan History of Present Illness The patient is a 43-year-old male presenting with a left knee injury. The injury resulted from falling off front steps and has rendered the patient unable to work for approximately two weeks. Currently, the patient is waiting for further evaluation from orthopedics after having started care at an urgent care facility. A knee brace is in use, and workers' compensation is handling the work absence. The patient also describes persistent pain in the right hand, particularly at the thumb, affecting his ability to perform repetitive tasks at work. The pain is partly managed with Advil, though relief is inadequate, and the patient is considering it might be related to arthritis. Social History - Employment: Currently out of work due to a knee injury. - Exercise: Regular exercise noted when not injured. Review of Systems - Musculoskeletal: Reports pain in the right hand, particularly in the thumb area. - Musculoskeletal: Denies pain elsewhere. Physical Exam General: Cooperative and healthy appearing Nutritional Appearance: Well nourished Orientation/consciousness: Patient oriented x3 Limitations: No limitations Head: Normal to inspection General: Appearance normal, both eyes and all related structures Neck: Normal visual inspection Chest: Normal palpation of entire chest wall Respiratory: Normal respiratory effort Neurology: Patient oriented x3 Results Plan The patient will continue to utilize a knee brace and pursue an appointment with orthopedics for the left knee injury. For the hand pain, associated with potential arthritis, stretching exercises and Tylenol are recommended for symptom relief. An X-ray of the hand is suggested to determine any arthritis-related changes. Patient was informed and verbally consented to the use of an ambient scribe for clinic note documentation during this visit. Discussion Notes I discussed with the patient the management of his left knee injury, emphasizing the importance of wearing the brace and ensuring follow-up with orthopedics. For his right hand pain, potential arthritis was considered as a cause, and we discussed engaging in stretching exercises. I recommended trying Tylenol for pain relief and advised obtaining an X-ray if symptoms persist, to further evaluate for arthritis. We reviewed his current blood work, which showed no concerning abnormalities, and agreed to repeat it during this period in the fasting state. I advised on the importance of staying active and maintaining range of motion while off work. Patient Instructions - Continue to use the knee brace as directed. - Follow up with orthopedics for further evaluation of the knee. - Perform recommended stretching exercises for hand pain. - Take Tylenol for pain management as needed. - Consider an X-ray of the hand if pain persists or worsens. - Undergo fasting blood work as scheduled. Orders: Orders Basic Metabolic Panel Today E78.00 - Pure hypercholesterolemia, unspecified, F33.9 - Major depressive disorder, recurrent, unspecified Complete Blood Count no Diff Today E78.00 - Pure hypercholesterolemia, unspecified, F33.9 - Major depressive disorder, recurrent, unspecified Lipid Panel Today E78.00 - Pure hypercholesterolemia, unspecified, F33.9 - Major depressive disorder, recurrent, unspecified Liver Panel Today E78.00 - Pure hypercholesterolemia, unspecified, F33.9 - Major depressive disorder, recurrent, unspecified Thyroid Stimulating Hormone Today E78.00 - Pure hypercholesterolemia, unspecified, F33.9 - Major depressive disorder, recurrent, unspecified UA and rflx microscopic Today E78.00 - Pure hypercholesterolemia, unspecified, F33.9 - Major depressive disorder, recurrent, unspecified
== END 2024-05-10 08:23 | disposition home or self-care (01) ==
PROVIDERS: PCP Internal Medicine; Visit Provider Internal Medicine
DX: F33.9 Major depressive disorder, recurrent, unspecified (principal); E78.00 Pure hypercholesterolemia, unspecified; S83.90XA Sprain of unspecified site of unspecified knee, initial encounter

== ENCOUNTER 2024-05-10 07:52 | Outpatient (REF) | payer BC, SELFPAY ==
[2024-05-10 09:18] LABS: Hematocrit 47.4 % (42.0-52.0); Hemoglobin 15.9 g/dl (14.0-18.0); Mean Corpuscular HGB Conc 33.5 g/dl (31.0-36.0); Mean Corpuscular Hemoglobin 30.8 pg (27.0-33.0); Mean Corpuscular Volume 91.9 fL (80.0-98.0); Mean Platelet Volume 9.7 fL (9.4-12.4); Platelet Count 303 X10*3/uL (160-400); Red Blood Count 5.16 X10*6/uL (4.60-5.80); Red Cell Distribution Width 11.7 % (11.0-16.0); White Blood Count 6.1 X10*3/uL (4.8-10.8)
[2024-05-10 10:08] LABS: Alanine Aminotransferase 76 U/L (0-40); Albumin Level 4.4 g/dL (3.5-5.0); Alkaline Phosphatase 73 U/L (39-117); Anion Gap 10 (12-20); Aspartate Amino Transferase 40 U/L (5-37); Bilirubin Direct 0.2 mg/dL (0.0-0.5); Bilirubin Total 0.5 mg/dL (0.0-1.0); Blood Urea Nitrogen 12 mg/dL (9-16); Calcium 9.7 mg/dL (8.4-10.2); Carbon Dioxide 28 mmol/L (22-29); Chloride 109 mmol/L (96-108); Cholesterol 139 mg/dL (<200); Estimated Glomerular Filt Rate > 60; Glucose Random 89 mg/dL (60-115); HDL Cholesterol 39 mg/dL (>40); LDL Cholesterol Calculated 77 mg/dL (<100); Potassium 4.5 mmol/L (3.3-5.1); Sodium 142 mmol/L (135-145); Total Protein 7.7 g/dL (6.5-8.0); Triglycerides 117 mg/dL (<150)
== END 2024-05-10 07:53 | disposition home or self-care (01) ==
LOC: HO.LAB 07:52
PROVIDERS: PCP Internal Medicine; Visit Provider Internal Medicine
DX: F33.9 Major depressive disorder, recurrent, unspecified (principal); E78.00 Pure hypercholesterolemia, unspecified
CPT/HCPCS: 36415; 80048; 80061; 80076; 84443; 85027

== ENCOUNTER 2024-06-12 10:30 | Outpatient (REF) | payer OTHER, BC, SELFPAY ==
--- NOTE | ~2024-06-12 | XR_ITS ---
EXAMINATION: XR KNEE, LEFT CLINICAL INFORMATION: M25.562 - Pain in left knee COMPARISON: None available. TECHNIQUE: Three views of the left knee. FINDINGS: No fracture, dislocation, or suspicious bone lesion. Normal bone mineralization. Normal alignment. Joint spaces are preserved. No significant arthropathy. There is a small superior patellar enthesophyte. No significant joint effusion. Soft tissues appear normal. XR/XR knee LT 3V IMPRESSION: 1. Essentially normal left knee. Electronically signed by: Lupillo March MD 06/13/2024 10:20 AM EDT
== END 2024-06-12 10:31 | disposition home or self-care (01) ==
LOC: HO.HOSX 10:30
PROVIDERS: Visit Provider Orthopaedic Surgery
DX: M25.562 Pain in left knee (principal)
CPT/HCPCS: 73562; 99202

== ENCOUNTER 2024-06-12 11:09 | Outpatient (AMB) | payer OTHER, BC, SELFPAY ==
--- NOTE | 2024-06-12 11:15 | A.OFFVIS_ITS ---
Vital Signs 06/12/24 11:23 Height 5 ft 11 in Weight 187 lb BMI 26.1 Handedness Right Intake Visit Reasons: Left knee pain and giving way Intake Note: Tom is a 44 year old male who presents with complaints of progressively worsening left knee pain and giving way. The patient states that he tripped on stairs while working on 04/27/2024. He denies any symptoms prior to that injury. The patient states that his pain is increased when he is walking, sitting, standing or using stairs. The patient has tried wearing a knee brace which give s him minimal relief. He has also tried Tylenol and ibuprofen which gave him only mild relief. He has tried applying ice which gives him mild relief. He has not been able to work because of his pain and symptoms of instability. Allergies No Known Allergies Allergy (Verified 05/10/24 08:24) Medication List - Last Reviewed 06/12/24 by VERONICA Hung atorvastatin 40 mg PO DAILY paroxetine HCl 40 mg PO DAILY [facility] Medical History Major depression, recurrent, chronic Hypercholesterolemia Surgical History History of placement of ear tubes Family History Father No problems noted. Mother No problems noted. 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 Current occupational exposures/hazards: No Cognitive needs: No Hearing needs: No Vision needs: Yes Physical Exam Vital Signs: BMI result Body Mass Index 26.1 Const Other: Well-nourished well-developed very friendly male awake alert and oriented x3 in no acute distress Extrem Other: Bilateral lower extremity examination shows good capillary refill, no skin lesions noted, normal sensation light touch Left knee examination shows a minimal effusion, minimal crepitus with range of motion, tenderness along his medial joint line, positive Florencio's test, no instability Results Reviewed Results Reviewed: Standing full weight-bearing x-rays of the patient's left knee show no acute bony abnormalities Assessment & Plan Assessment & Plan (1) Tear of medial meniscus of left knee: Code(s): S83.242A - Other tear of medial meniscus, current injury, left knee, initial encounter Category: Medical Plan Mr. Anderson presents with left knee pain and mechanical symptoms most likely due to a tear of his medial meniscus. Thus, I will send the patient for an MRI of his left knee for further evaluation. I will see him back following the MRI to discuss the findings and treatment options. I will keep him out of work until his follow-up appointment. Feel free to call me at any time should questions regarding his orthopedic management arise. I spent 22 minutes in reviewing the patient's records and imaging studies, seeing the patient and documenting in the medical record. Orders: Orders XR knee LT 3V Today M25.562 - Pain in left knee MR knee LT wo con Today S83.242A - Other tear of medial meniscus, current injury, left knee, initial encounter Coding Level of Care Code New Pt Level 3 (18209) Complex EM visit Add On G2211 Diagnoses Tear of medial meniscus of left knee S83.242A
[2024-06-12 11:23] VITALS: BMI 26.1
--- OUTSIDE RECORDS SUMMARY | 2024-06-12 13:28 | XMS_ITS | Data Portability ---
Author Organization [facility], Main Office Address [address] [facility] [address] [place] [id number] Care Team Providers Care Bone Drier Operator Name Role Phone JAN BROWNE Primary Care Provider Assessment No assessment recorded. Plan of Treatment Reminders Order Date Submit Date Provider Last Modified By Organization Details Last Modified Time Details Appointments None recorde d. Lab tissue transgl utamina se igg Ab, serum 2016 017 IVAN [facility], [address], [address], [place], [address], 7 09:51:02 tissue transgl utamina se iga Ab, serum 2016 017 IV[facility], [address], [address], [place], [place], [address], 7 17:10:43 lipid panel, serum 2016 017 [facility], [address], [address], [place], [place], [address], 7 15:17:26 CMP, serum or plasma 2016 017 IV[facility], [address], [address], [place], [address], 7 15:17:25 CBC w/ auto diff 2016 017 [facility], [address], [address], [place], [address], 7 13:58:42 Referral None recorde d. Procedures None recorde d. Surgeries None recorde d. Imaging XR, calcane us 2016 017 marcelle [facility], [address] [place], [address], 7 08:24:07 XR, ankle, 3 or more view 2016 017 IVAN [facility], [address] [place], [address], 7 13:13:31 Medication Orders clonaze mitch 0.5 mg tablet 2016 017 [email or web address] Not available 09:35:12 Patient TargetsNo targets recorded. Patient Instructions Encounter Date Encounter Id Patient Instructions Last Modified By Organization Details Last Modified Time 04/07/2016 [id number] Quitting Tobacco : Care Instructions Not available [...] care. driss Not available 04/08/2016 16:41:23 09/23/2016 [id number] plantar fasciiti s: care instructions [email or web address] Not [...] Go To The Location Of Their Choice, [id number] 04/09/2016 15:17:26 04/09/19 17 04/12/2016 tissu e trans gluta shreya e iga Ab, serum ttg result 0.55 U/mL Refer ence Range : less than or equal to 15 U/mL (nega tive) Effec tiamarilys Canela 2016 the refer ence range for this assay has al ed from less than 4 U/mL to less than or equal to 15 U/mL. Not Available [facility] (Centralized Electronic Ordering - All Locations) Patient Can Go To The Location Of Their Choice, [id number] 04/12/2016 17:10:43 04/09/19 17 04/13/2016 tissu e trans gluta shreya e igg Ab, serum tissue tranglutamin ase IgG <1.2 Refer ence range : <6.0 (Nega tive) Unit: U/mL Test Perfo rmed by: [facility], [address] , [place] [address] Labor atory Direc tor: Evert astudillo III, M.D. Not Available [facility] (Centralized Electronic Ordering - All Locations) Patient Can Go To The Location Of Their Choice, [id number] 04/13/2016 09:51:02 09/28/19 17 09/27/2016 XR, calca neus Right calcan eus, latera l and tangen tial. Histor y: Pain. These images were previo usly interp reted togeth er with a right ankle study. See separa te report . WSN: [id number] Dictat ed By: John Kaye MD Dictat ed Date/T pia: 12:40 p Review ed By: John Kaye MD Signed By: John Kaye MD Signed Date/T pia: 12:40 pm Transc ribed By: CARLOS Transc ribed Date/T pia: 12:40 pm Patien t Class[facility] [address] , [place], [address], 10/07/2016 08:24:07 09/28/19 17 09/27/2016 XR, ankle [...] ality. Impres joey: Normal studie s. WSN: [id number] Dictat ed By: John Kaye MD Dictat ed Date/T pia: 1:10 pm Review ed By: John Kaye MD Signed By: John Kaye MD Signed Date/T pia: 1:10 pm Transc ribed By: CARLOS Transc ribed Date/T pia: 1:10 pm Patien t Class: Outpat ient [facility] (Outpt Imaging) [address] [place] [address], [address], 09/27/2016 20:14:55 Result Notes None recorded. Problems Name Problem SNOMED Code Status Onset Date Resolution Date Notes Provider Name and Address Organization Details Recorded Time Depressive disorder 25592463 Active 017 [place], [facility] 7 13:06:54 Anxiety 79373041 Active 017 [place] Tadeo, [facility] 7 13:07:01 Problem Notes None recorded. Procedures Surgical History None recorded. Imaging Results Imaging Date Name Status LastModified by Organiz ation Details LastModified Time 09/27/2016 [facility] calcaneus [facility] [address] [place], [address], 10/07/2016 08:24:07 09/27/2016 XR, ankle, 3 or more view completed [facility] (Outpt Imaging) [address] [place], [address], 09/27/2016 20:14:55 Procedure Notes None recorded. Medical [...] % 100 % 81 /min 180.34 cm 03659.1 4 g 26.6 kg/m2 97.8 [degF] 123 mm[Hg] 80 mm[Hg] Jocelyn Bolden MA [facility] 7 13:12:45 Date Recorded Body height Body mass index (BMI) Body weight Body temperature Oxygen saturation Oxygen saturation in Arterial blood by Pulse oximetry Heart rate Systolic blood pressure Diastolic blood pressure Provider Name and Address Organization Details Last Updated DateTime 7 180.34 cm 25.2 kg/m2 77871.7 8 g 97.8 [degF] 97 % 97 % 81 /min 111 mm[Hg] 76 mm[Hg] Irma Medina [facility] 7 08:47:04 Social History Question Answer Notes LastModified by Organizat ion Details LastModified Time Tobacco Smoking Status Current Every Day Smoker Jocelyn Bolden MA [facility], [facility] 04/07/2016 13:09:44 What Is Your Level Of Alcohol Consumption? Heavy [email or web address] Information not available 04/07/2016 Is Blood Transfusion Acceptable In An Emergency? Yes Information not available 04/07/2016 What Is Your Level Of Caffeine Consumption? Moderate [email or web address] Information not available 04/07/2016 Are You Currently Employed? Yes [email or web address] Information not available 04/07/2016 What Type Of Diet Are You Following? REGULAR [email or web address] Information not available 04/07/2016 Live Alone Or With Others? With Others [email or web address] Information not available 04/07/2016 Do You Take Precautions To Prevent Distracted Driving? Yes [email or web address] Information not available 04/07/2016 Have You Served In The ? No [email or web address] Information not available 04/07/2016 How Many Children Do You Have? 0 [email or web address] Information not available 04/07/2016 Seat Belts Used Routinely Yes [email or web address] Information not available 04/07/2016 Are You Sexually Active? Yes Information not available 04/07/2016 Smoke Alarm In Home Yes [email or web address] Information not available 04/07/2016 How Much Tobacco Do You Smoke? 1 PPD [email or web address] Information not available 04/07/2016 Do You Use Sunscreen Routinely? Yes Information not available 04/07/2016 Sex: Unknown Functional Status Question Answer Note LastModified by Organization D etails LastModified Time Are you able to care for yourself? Yes [email or web address] Information n ot available 04/07/2016 What is your exercise level? None [email or web address] Information not available 04/07/2016 Mental Status None recorded. Family History Relationship Description Onset Age of this Age Resolved Age Notes LastModified by Organization Details LastModified Time Paternal Grandmother Heart disease [email or web address] Not available 04/07 13:08:16 Mother Hypertensive disorder [email or web address] Not available 04/07 13:08:32 Father Parkinson's disease [email or web address] Not available 04/07 13:08:43 Notes:no FH of breast or col on cancer Medical History No medical history recorded. Immunizations Vaccine Type Date Status Note Provider Nam e and Address Organization Details Recorded Time Tdap 03/14/2013 completed [place] Tadeo [facility] 04/07/2016 13:06:39 Past Encounters Encounter ID Performer Location Encounter Start Date Encounter Closed Date Diagnosis/Indication Diagnosis SNOMED-CT Code Diagnosis ICD10 Code Diagnosis Note [id number] Young Reyna MD Main Office [address] [facility] [place] [id number] 04/07/2016 12:39:19 04/07/2016 14:17:59 Adult health examination 296027662 Z00.00 Tobacco de pendence syndrome 36977464 F17.290 h/o tob x 15 pyh - has tried to quit a few times in past - cold turkey, but only lasts a few weeks Body mass index 25-29 - overweight 014376328 Z68.26 Alcohol abuse 31042782 F 10.10 ave 6-12 beers/nigh t most nights of the week Irritable bowel syndrome with diarrhea 806434443 K58.0 h/o ibs-d since childhood - check ttg to r/o celiac Insomnia 425849710 G47.0 0 Impacted cerumen 8923140 6 H61.21 mild R Mixed anxi ety and depressive disorder 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 F41.8 stable on meds as per former PCP, never seen by therapist - consider if feeling worse d/t dual dx c etoh [id number] Estuardo chan Main Office [address] [facility] [address] [facility] [place] [phone] 09/23/2016 08:24:11 09/23/2016 10:34:36 Anxiety 60321393 F41.9 rare use of clonazepam - not even wkly Depressive disorder 3548 9007 F32.9 doing great on ssri - cont Ankle pain 336080692 M25 .571 rolled ankle yesterday - ice, elevate - hurts worse today (more so heel than ankle but pt concerned about hairline fx) Plantar fasciitis 334387 003 M72.2 25 minute office visit with greater than 50% of the visit face-to-fa ce with the patient and/or family providing counseling and/or coordinati on of care. Heel pain 6228468 M79.67 1 6 months - see above - check xray to see about degree of spur Alcohol abuse 55233048 F 10.10 quit etoh several months ago - feeling better - congratula jelly pt Health Concerns Section Related Observation LastModified by Organization Detai ls LastModified Time None Recorded Concern Status LastModified by Organization Details LastModified Time None Recorded Advance Directives Directive None Recorded Payers Encounter Date Sequence Insurance Name Policy Number Policy Eugene Covered Member ID Eugene Member ID Guarantor Name 04/07/2016 1 [place] [id number] Tom Anderson [id number] Tom Anderson 09/23/2016 1 [place] [id number] Tom Anderson [id number] Tom [place] Notes Date Note Type Note Provider Name and Address Organization Details Recorded Time 04/07/2016 text/html here for [employer] [facility] - no records to review. Pt has h/o anx/dep - takes paxil and prn clonazepam from PCP - never seen by therapist, was rx'd by PCP - states has enough pills at this time. He states he left former PCP d/t difficulty getting in to office. Young Reyna MD [address] [address], [place], [address], [facility] 04/08/2016 16:41:33 09/23/2016 text/html pt here for [...] tip toes 1st thing in am Estuardo sequeira, [facility] 09/23/2016 12:44:09
== END 2024-06-12 11:39 | disposition home or self-care (01) ==
LOC: HO.HOS 11:10
PROVIDERS: PCP Internal Medicine; Visit Provider Orthopaedic Surgery
DX: S83.242A Other tear of medial meniscus, current injury, left knee, initial encounter (principal)
CPT/HCPCS: 99203; G2211

== ENCOUNTER → 2024-06-12 11:14 | Outpatient (BNV) | payer OTHER, BC, SELFPAY | PROVIDERS: Visit Provider Radiology Diagnostic Radiology | DX: M25.562 Pain in left knee (principal) | CPT/HCPCS: 73562 ==

== ENCOUNTER 2024-06-22 19:13 | Outpatient (REF) | payer OTHER, BC, SELFPAY ==
--- NOTE | ~2024-06-22 | MR_ITS ---
EXAMINATION: MRI LEFT KNEE WITHOUT CONTRAST HISTORY: S83.242A - Other tear of medial meniscus, current injury, left knee COMPARISON: Correlation is made to plain films of the left knee dated 06/12/2024. TECHNIQUE: Coronal T1 and fat-suppressed proton density, sagittal proton density and fat-suppressed proton density, and axial fat suppressed T2 weighted MR images of the knee were obtained. FINDINGS: Bone marrow: There is a small focus of marrow edema involving lateral aspect of the lateral femoral condyle likely represents a bone contusion. Bone marrow signal intensity is otherwise normal. Joint effusion: There is no joint effusion. Guardado's cyst: There is no Guardado's cyst. Articular cartilage: Intact Muscles/soft tissues: The visualized muscles demonstrate normal signal intensity. There is mild edema of the prepatellar soft tissues. Anterior cruciate ligament: Intact Posterior cruciate ligament: Intact Medial collateral ligament: Intact Lateral collateral ligament: Intact Medial meniscus: Intact Lateral meniscus: Intact Flexor mechanism: The popliteus, gastrocnemius, and hamstring tendons are intact. Quadriceps tendon: Intact Patellar tendon: Intact Patellar retinacula: Intact MR/MR knee LT wo con IMPRESSION: Mild prepatellar soft tissue edema. Small bone contusion involving the lateral aspect of the lateral femoral condyle. Otherwise unremarkable MRI of the left knee. Electronically signed by: Cachorro Lares MD 06/25/2024 07:43 AM EDT
== END 2024-06-22 19:14 | disposition home or self-care (01) ==
LOC: HO.MRI 19:13
PROVIDERS: PCP Internal Medicine; Visit Provider Orthopaedic Surgery
DX: S83.242A Other tear of medial meniscus, current injury, left knee, initial encounter (principal)
CPT/HCPCS: 73721

== ENCOUNTER → 2024-06-22 19:25 | Outpatient (BNV) | payer OTHER, BC, SELFPAY | PROVIDERS: PCP Internal Medicine; Visit Provider Radiology Diagnostic Radiology | DX: S80.02XA Contusion of left knee, initial encounter (principal) | CPT/HCPCS: 73721 ==

== ENCOUNTER 2024-07-17 13:19 | Outpatient (AMB) | payer OTHER, BC, SELFPAY ==
--- NOTE | 2024-07-17 13:22 | A.OFFVIS_ITS ---
Vital Signs 07/17/24 13:23 Height 5 ft 11 in Weight 187 lb BMI 26.1 Intake Visit Reasons: OV-LT knee MRI review Intake Note: Tom is a 44 year old male who presents with complaints of progressively worsening left knee pain and giving way. The patient states that he tripped on stairs while working on 04/27/2024. He denies any symptoms prior to that injury. The patient states that his pain is increased when he is walking, sitting, standing or using stairs. He has also tried Tylenol and ibuprofen which gave him only mild relief. He has tried applying ice which gives him mild relief. He has not been able to work because of his pain and symptoms of instability. Allergies No Known Allergies Allergy (Verified 07/17/24 13:25) Medication List - Last Reconciled 07/17/24 by Osmany Warren MD atorvastatin 40 mg PO DAILY paroxetine HCl 40 mg PO DAILY [facility] Medical History Major depression, recurrent, chronic Hypercholesterolemia Surgical History History of placement of ear tubes Family History Father No problems noted. Mother No problems noted. 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 Current occupational exposures/hazards: No Cognitive needs: No Hearing needs: No Vision needs: Yes Physical Exam Vital Signs: BMI result Body Mass Index 26.1 Extrem Other: Left knee examination shows a minimal effusion, no crepitus with range of motion, no instability Results Reviewed Results Reviewed: MRI of the patient's left knee shows a small bone contusion involving the lateral aspect of the lateral femoral condyle, otherwise unremarkable MRI of the left knee Assessment & Plan Assessment & Plan (1) Contusion of left knee: Code(s): S80.02XA - Contusion of left knee, initial encounter Category: Medical Plan Mr. Anderson presents with left knee pain due to a bony contusion. I had a lengthy discussion with the patient regarding the treatment options. No surgery is indicated for this problem. The patient's symptoms should resolve with continued activity modifications. The patient states that because of his continued discomfort he does not feel like he can return to work. I did have hi m fitted for a knee brace to help with his symptoms of instability. From my standpoint the patient can return to work once his discomfort allows him to do so. He will follow up with me on an as-needed basis. I spent 20 minutes in reviewing the patient's records and imaging studies, seeing the patient and documenting in the medical record. Coding Level of Care Code Est Pt Level 3 (52088) Complex EM visit Add On G2211 Diagnoses Contusion of left knee S80.02XA
[2024-07-17 13:23] VITALS: BMI 26.1
== END 2024-07-17 13:50 | disposition home or self-care (01) ==
LOC: HO.HOS 13:19
PROVIDERS: PCP Internal Medicine; Visit Provider Orthopaedic Surgery
DX: S80.02XA Contusion of left knee, initial encounter (principal)
CPT/HCPCS: 99213

== ENCOUNTER → 2024-07-17 13:19 | Outpatient (BNVA) | payer OTHER, BC, SELFPAY | PROVIDERS: PCP Internal Medicine; Visit Provider Orthopaedic Surgery | DX: S80.02XA Contusion of left knee, initial encounter (principal); X58.XXXA Exposure to other specified factors, initial encounter; Y93.9 Activity, unspecified; Y92.9 Unspecified place or not applicable; Y99.9 Unspecified external cause status | CPT/HCPCS: 99212 ==

== ENCOUNTER 2024-10-10 09:05 | Outpatient (AMB) | payer BC, SELFPAY ==
[2024-10-10 10:19] VITALS: BP 120/62; PULSE 78; TEMP 36.7; O2SAT 98
--- NOTE | 2024-10-10 10:19 | AM.OFFWIN_ITS ---
Intake Vital Signs 10/10/24 10:19 Weight 185 lb BP 120/62 Blood Pressure Location Lt brachial Position Sitting Pulse 78 Pulse Source Pulse Oximeter Temp 98.1 F Temp Source Oral Pulse Oximetry (%) 98 Oxygen Delivery Method Room Air Intake Visit Reasons: EP Pulled back Intake Note: presents with right low back after sneezing Patient Tobacco Use Status: Former Tobacco user Allergies No Known Allergies Allergy (Verified 10/10/24 10:20) Do you need a note to return to daycare/school/sports/work: Yes HPI HPI Comments History of Present Illness Details History - The patient is a 44-year-old male pres enting with acute lower back pain. - Pain began three days ago after a snee ze. - Pain radiates to buttocks, not down th e leg. Aching down the right leg - Described as aching, worsens with move ment. - Using ice and lidocaine patches, and m otrin with some relief. - No loss of bladder or bowel control. Physical Exam General: cooperative, healthy appearing and comfortable, patient oriented x3 Head: Yes normal to inspection and Yes normocephalic General nose exam: Normal external nose present Face and sinus: Yes normal facial exam Effort & Inspection: normal respiratory effort and able to speak in complete sentences Back/spine: no CVA tenderness bilaterally cervical, thoracic and lumbar spine normal to inspection cervical ROM normal, thoracic ROM normal, lumbar ROM normal no Cervical, thoracic or lumbar spine tenderness slightly TTP right lumbar PFSH Medical History Major depression, recurrent, chronic Hypercholesterolemia Surgical History History of placement of ear tubes Family History Father No problems noted. Mother No problems noted. 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 Current occupational exposures/hazards: No Cognitive needs: No Hearing needs: No Vision needs: Yes Review of Systems Const All systems reviewed & are unremarkable except as noted in HPI and below Physical Exam Vital Signs: Last Vital Signs Temp 98.1 F 10/10/24 10:19 Pulse 78 10/10/24 10:19 BP 120/62 10/10/24 10:19 Pulse Ox 98 10/10/24 10:19 Oxygen Delivery Method Room Air 10/10/24 10:19 Assessment & Plan Assessment & Plan (1) Right-sided low back pain with right-sided sciatica: Code(s): M54.41 - Lumbago with sciatica, right side Qualifiers: Chronicity: acute Qualified Code(s): M54.41 - Lumbago with sciatica, right side Plan: Plan Patient was informed and verbally consented to the use of an ambient scribe for clinic note documentation during this visit. - Muscle relaxer prescribed. - Prednisone 40 mg daily for five days. - Use ice for inflammation. - Avoid NSAIDs during prednisone course. - Emergency care advised if bladder or bowel control is lost. Medications: New cyclobenzaprine 5 mg PO Q8H PRN 20 tabs 0RF Muscle Spasm prednisone 40 mg (2 x 20 mg) PO QAM 10 tabs 0RF Coding Level of Care Code Est Pt Level 3 (38265) Diagnoses Acute right-sided low back pain with right-sided sciatica M54.41 Chronicity: acute
== END 2024-10-10 10:51 | disposition home or self-care (01) ==
PROVIDERS: PCP Internal Medicine; Visit Provider Physician Assistant
DX: M54.41 Lumbago with sciatica, right side (principal)

== ENCOUNTER 2024-11-15 07:50 | Outpatient (AMB) | payer BC, SELFPAY ==
[2024-11-15 07:59] VITALS: BP 118/68; PULSE 71; O2SAT 98; BMI 25.7
--- NOTE | 2024-11-15 07:59 | A.OFFPC_ITS ---
Vital Signs 11/15/24 07:59 Height 5 ft 11 in Weight 184 lb BMI 25.7 BP 118/68 Blood Pressure Location Lt brachial Position Sitting Pulse 71 Pulse Source Pulse Oximeter Pulse Oximetry (%) 98 Oxygen Delivery Method Room Air Intake Visit Reasons: 6 month follow up - see comments Allergies No Known Allergies Allergy (Verified 11/15/24 07:59) Tobacco use date assessed: 05/10/24 Dental Screening Dental Screen Date: 05/10/24 [facility] Medical History Major depression, recurrent, chronic Hypercholesterolemia Surgical History History of placement of ear tubes Family History Father No problems noted. Mother No problems noted. 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 1. Little interest or pleasure in doing things: not at all 2. Feeling down, depressed, or hopeless: not at all 3. Trouble falling or staying asleep, or sleeping too much: not at all 4. Feeling tired or having little energy: several days 5. Poor appetite or overeating: not at all 6. Feeling bad about yourself - or that you are a failure or have let yourself or your family down: not at all 7. Trouble concentrating on things, such as reading the newspaper or watching television: not at all 8. Moving or speaking so slowly that other people could have noticed. Or the opposite - being so fidgety or restless that you have been moving around a lot more than usual: not at all 9. Thoughts that you would be better off or of hurting yourself in some way: not at all Total score: 1 Depression Screening Interpretation: Positive Depression Screening Done: Yes Source: Developed by Drs. Cachorro Lewis, Samuel Wolff and colleagues, with an educational booker from [employer]. Thrive Questionnaire Date Thrive assessed: 11/15/24 I am a: Patient What is your living situation today?: I have a steady place to live Within the past 12 months, did the food you bought not last and you didn't have the money to get more?: Never true Within the past 12 months, did you worry whether your food would run out before you got money to buy more?: Never true Do you have trouble paying for medicines?: No Do you have trouble getting transportation to medical appointments?: No Do you have trouble paying your heating and electricity bill?: No Do you have trouble taking care of your child, family member or friend?: No Do you have trouble with day-to-day activities such as bathing, preparing meals, shopping, managing finances, etc.?: No Are you currently unemployed and looking for a job?: No Are you interested in more education?: No Please select the resources that you would like help with: None Currently or been in a relationship where the following occur: No concerns reported THRIVE Score: 0 AUDIT C Alcohol Use Questionnaire (AUDIT-C) 1. How often do you have a drink containing alcohol?: Never 3. How often do you have six or more drinks on one occasion?: Never Total Score: 0 ETHAN-7 AMB Questionnaire ETHAN-7 Date ETHAN - 7 assessed: 11/15/24 Feeling nervous, anxious, or on edge: 0 = Not at all Not being able to stop or control worryin = Not at all Worrying too much about different things: 0 = Not at all Trouble relaxin = Not at all Being so restless that it is hard to sit still: 0 = Not at all Becoming easily annoyed or irritable: 0 = Not at all Feeling afraid as if something awful might happen: 0 = Not at all Total ETHAN-7 score (0-4 normal; 5-9 mild; 10-14 moderate; 15-21 severe): 0 Source: Developed by Shonna Hampton Kurt Kroenke and colleagues, with an educational booker from [employer]. Physical exam (Primary Care) Vital Signs: Last Vital Signs Pulse 71 11/15/24 07:59 BP 118/68 11/15/24 07:59 Pulse Ox 98 11/15/24 07:59 Oxygen Delivery Method Room Air 11/15/24 07:59 BMI result Body Mass Index 25.7 Tobacco/Smoking Status: Tobacco use Status Tobacco use date assessed 05/10/24 11/15/24 08:03 Patient Tobacco Use Status Former Tobacco user 11/15/24 08:03 Tobacco use type Cigarette 11/15/24 08:03 e-Cigarette/Vaping Use Never Used 11/15/24 08:03 PHQ-9: PHQ-9 Score PHQ-9: Total score 1 11/15/24 08:03 Depression Screening Interpretation: Positive Thrive Assessment: Date of Thrive Assessment Date Thrive assessed 11/15/24 11/15/24 08:03 Currently or been in a relationship where the following occur: No concerns reported Coding Level of Care Code Est Pt Level 4 (70314) Complex EM visit Add On G2211 Diagnoses Hypercholesterolemia E78.00 Major depression, recurrent, chronic F33.9 Assessment & Plan Assessment & Plan (1) Hypercholesterolemia: Code(s): E78.00 - Pure hypercholesterolemia, unspecified Category: Medical Plan: BW ordered. Will call with results (2) Major depression, recurrent, chronic: Code(s): F33.9 - Major depressive disorder, recurrent, unspecified Category: Medical Plan: Condition is stable. Continue current medications Plan History of Present Illness - The patient is a 44-year-old male presenting with pruritus of the left arm and knee pain. - Pruritus of the left arm: The patient reports localized itching on the left arm, confined to a specific area without associated symptoms. - Knee pain: Persistent knee pain is reported, particularly when ascending stairs, located under the knee, ongoing since a work-related injury. - An MRI showed only bruising, and the patient was advised to return to work despite ongoing pain, with a knee brace providing no relief. - Preventative care: The patient is eligible for colon cancer screening and has opted for the Cologuard test, a non-invasive stool test for detecting colon cancer. Social History - Employment: The patient is currently employed and has a work-related knee injury. - Time off: The patient has six weeks of annual leave, with some already taken, and must schedule time off in advance. Review of Systems - Dermatological: Reports localized pruritus on the left arm. - Musculoskeletal: Reports knee pain, particularly when ascending stairs. - Genitourinary: Denies any urinary issues. Physical Exam General: Cooperative and healthy appearing Nutritional Appearance: Well nourished Orientation/consciousness: Patient oriented x3 Limitations: No limitations Head: Normal to inspection General: Appearance normal, both eyes and all related structures Neck: Normal visual inspection Chest: Normal palpation of entire chest wall Respiratory: N ormal respiratory effort Neurology: Patient oriented x3, reports pain under the knee when going upstairs. Results Plan 1. Pruritus Of The Left Arm - Plan: Monitor the condition and advise on potential topical treatments if symptoms persist. 2. Knee Pain - Plan: Continue monitoring the condition, use of knee brace, and consider rest as needed. 3. Preventative Care: Colon Cancer Screening With Stool Test (Cologuard) - Plan: Proceed with Cologuard test for colon cancer screening, with follow-up at age 49 for colonoscopy. Discussion Notes I discussed with the patient the option of colon cancer screening using the Cologuard test, explaining its ease of use and non-invasive nature. We also reviewed the limitations of Cologuard compared to colonoscopy. The patient opted for Cologuard, and we plan to follow up with a colonoscopy at age 49. We also discussed the ongoing knee pain and the lack of significant findings on MRI, advising continued use of a knee brace and monitoring of symptoms. Patient Instructions - Use a knee brace as needed and rest the knee to alleviate pain. - Complete the Cologuard test as instructed and return it for analysis. - Schedule a follow-up appointment in six months for further evaluation. Orders: Orders Complete Blood Count no Diff Today E78.00 - Pure hypercholesterolemia, unspecified, F33.9 - Major depressive disorder, recurrent, unspecified Thyroid Stimulating Hormone Today E78.00 - Pure hypercholesterolemia, unspecified, F33.9 - Major depressive disorder, recurrent, unspecified UA and rflx microscopic Today E78.00 - Pure hypercholesterolemia, unspecified, F33.9 - Major depressive disorder, recurrent, unspecified Basic Metabolic Panel Today E78.00 - Pure hypercholesterolemia, unspecified, F33.9 - Major depressive disorder, recurrent, unspecified Lipase Today E78.00 - Pure hypercholesterolemia, unspecified, F33.9 - Major depressive disorder, recurrent, unspecified, K85.90 - Acute pancreatitis without necrosis or infection, unspecified Lipid Panel Today E78.00 - Pure hypercholesterolemia, unspecified, F33.9 - Major depressive disorder, recurrent, unspecified Referrals Cologuard Test Z12.11 - Encounter for screening for malignant neoplasm of colon
== END 2024-11-15 08:22 | disposition home or self-care (01) ==
PROVIDERS: PCP Internal Medicine; Visit Provider Internal Medicine
DX: E78.00 Pure hypercholesterolemia, unspecified (principal); F33.9 Major depressive disorder, recurrent, unspecified